=== PATIENT | male | born 1980 | race Caucasian/White ===

== ENCOUNTER 2022-06-06 20:56 | Emergency (ER) | payer BC ==
[~2022-06-06] VITALS: Ht 185.4 cm; Wt 84.4 kg
[2022-06-06 21:20] VITALS: BP 131/70
--- NOTE | 2022-06-06 21:25 | NUR ---
BIBS C/O L EYE IRRITATION, PT STATES "FEELS LIKE FOREIGN BODY IN EYE" X TODAY. PT DENIES ANY BLURRY VISION. PT IS ALERT AND ORIENTED. AMBULATORY WITH STEADY GAIT. CONNECTED TO MONITOR. AWAITING MD [place]
[2022-06-06] MEDS ORDERED: FLUORESCEIN SODIUM OPHTH 1 EA STRIP ONE (22:15)
--- NOTE | 2022-06-06 22:19 | NUR ---
DR. LAW UGARTE AT PT'S BEDSIDE FOR EYE EXAM
--- NOTE | 2022-06-06 22:36 | NUR ---
Patient discharged to home in stable condition. Written and verbal after care instructions given. Patient verbalizes understanding of instruction.
== END 2022-06-06 22:40 | disposition home or self-care (01) ==
LOC: ER 21:01
DX: T15.92XA Foreign body on external eye, part unspecified, left eye, initial encounter (principal); X58.XXXA Exposure to other specified factors, initial encounter; Y93.89 Activity, other specified; Y92.89 Other specified places as the place of occurrence of the external cause; Y99.8 Other external cause status